=== PATIENT | female | born 1960 ===

== ENCOUNTER 2016-11-04 05:21 | Day surgery (SDC) | payer BC ==
--- NOTE | ~2016-11-04 | EGD ---
EGD REPORT [facility] [address] [id number] NAME: TINY JACOBS : 56 STATUS : REG [facility]#: [id number] AGE: 55 ADM/REG DATE : 11/04/16 MR#: [id number] REPORT SERV DATE: 11/04/16 DICTATED BY: SANDRA PATHAK DATE: 11/04/16 REPORT STATUS : Draft TRANSCRIBED BY: [facility] DATE: 11/04/16 [facility] Patient Name: Tiny Jacobs Date of : 1960 Attending MD: SANDRA PATHAK MD Procedure Date No Time: 11/04/2016 Procedure: Colonoscopy Indications: Screening for colorectal malignant neoplasm Referring MD: MUSHTAQ TURCIOS Medicines: Monitored Anesthesia Care Complications: No immediate complications. Procedure: Pre-Anesthesia Assessment: - ASA Grade Assessment: III - A patient with severe systemic disease. After I obtained informed consent, the scope was passed under direct vision. Throughout the procedure, the patient's blood pressure, pulse, and oxygen saturations were monitored continuously. The PCF [id number] was introduced through the anus and advanced to the terminal ileum, with identification of the appendiceal orifice and IC valve. The colonoscopy was performed with moderate difficulty due to significant looping. Successful completion of the procedure was aided by applying abdominal pressure. The patient tolerated the procedure well. The quality of the bowel preparation was adequate. Findings: The digital rectal exam was normal. Pertinent negatives include no palpable rectal lesions. Hemorrhoids were found during retroflexion and were mild. A sessile polyp was found in the descending colon. The polyp was 8 mm in size. The polyp was removed with a cold snare. Resection and retrieval were complete. Two sessile polyps were found in the sigmoid colon. The polyps were 5 to 7 mm in size. These polyps were removed with a cold snare. Resection and retrieval were complete. A sessile polyp was found in the rectum. The polyp was 3 mm in size. The polyp was removed with a cold biopsy forceps. Resection and retrieval were complete. Impression: - Hemorrhoids. - One 8 mm polyp in the descending colon. Resected and retrieved. - Two 5 to 7 mm polyps in the sigmoid colon. Resected EGD REPORT [address] [address] NAME: TINY JACOBS : 56 STATUS : REG [facility] PAT#: [id number] AGE: 55 ADM/REG DATE : 11/04/16 MR#: [id number] REPORT SERV DATE: 11/04/16 DICTATED BY: SANDRA PATHAK DATE: 11/04/16 REPORT STATUS : Draft TRANSCRIBED BY: [employer] DATE: 11/04/16 and retrieved. - One 3 mm polyp in the rectum. Resected and retrieved. Recommendation: - Patient has a contact number available for emergencies. The signs and symptoms of potential delayed complications were discussed with the patient. Return to normal activities tomorrow. Written discharge instructions were provided to the patient. - Regular diet. - Continue present medications. - Repeat colonoscopy for surveillance based on pathology results. - Return to GI clinic PRN. Procedure Code(s): --- Professional --- 58431, Colonoscopy, flexible, proximal to splenic flexure; with removal of tumor(s), polyp(s), or other lesion(s) by snare technique [id number], 59, Colonoscopy, flexible, proximal to splenic flexure; with biopsy, single or multiple Diagnosis Code(s): --- Professional --- K64.9, Unspecified hemorrhoids K62.1, Rectal polyp D12.5, Benign neoplasm of sigmoid colon D12.4, Benign neoplasm of descending colon Z12.11, Encounter for screening for malignant neoplasm of colon CPT copyright 2013 [employer]. All rights reserved. The codes documented in this report are preliminary and upon assembler bonding review may be revised to meet current compliance requirements. SANDRA PATHAK MD 11/04/2016 7:45 AM This report has been signed electronically. Number of Addenda: 0 Note Initiated On: 11/04/2016 7:06 AM Scope Withdrawal Time 0 hours 17 minutes 16 seconds [address] [id number]
[~2016-11-04 05:21] MED LIST: COD LIVE1 PO; GLUCOPHAGE1000 MG PO; HALF81 PO; PRAVAC PO; PRINZIDE1 TAB PO; SEROQUEL200 MG PO; TOPXL50 PO; V5 PO
== END 2016-11-04 23:59 | disposition home or self-care (01) ==
LOC: DMU 05:21
PROVIDERS: Internal Medicine Gastroenterology
PROC: 0DBN8ZX Excision of Sigmoid Colon, Via Natural or Artificial Opening Endoscopic, Diagnostic (ICD-10-PCS; 2016-11-04)
PROC: 0DBP8ZX Excision of Rectum, Via Natural or Artificial Opening Endoscopic, Diagnostic (ICD-10-PCS; principal; 2016-11-04 07:00)
PROC: 0DBM8ZX Excision of Descending Colon, Via Natural or Artificial Opening Endoscopic, Diagnostic (ICD-10-PCS; 2016-11-04 07:00)
DX: Z12.11 Encounter for screening for malignant neoplasm of colon (principal); K62.1 Rectal polyp; K63.5 Polyp of colon; K64.9 Unspecified hemorrhoids; I10 Essential (primary) hypertension; I25.10 Atherosclerotic heart disease of native coronary artery without angina pectoris; F17.210 Nicotine dependence, cigarettes, uncomplicated; M79.7 Fibromyalgia; Z98.41 Cataract extraction status, right eye; Z98.42 Cataract extraction status, left eye; Z90.49 Acquired absence of other specified parts of digestive tract; Z98.890 Other specified postprocedural states
CPT/HCPCS: 82962; 88305; J2370